=== PATIENT | male | born 1940 | race Hispanic/Latino ===

== ENCOUNTER 2017-08-13 07:59 | Day surgery (SDC) | payer MEDICARE, OTHER ==
[2017-08-01 11:52] VITALS: BMI 24.7
[2017-08-13] MEDS ORDERED: Propofol 10 mg/ml Inj (20 ML) ONE (08:44)
[2017-08-13] MEDS ORDERED: Sodium Chloride 0.9% 1,000 ML IV SCH (10:15)
[2017-08-13 10:28] VITALS: RESP 14; TEMP 98
[2017-08-13 10:54] VITALS: PULSE 56; O2SAT 99
[2017-08-13 11:25] VITALS: BP 145/74
== END 2017-08-13 11:48 | disposition home or self-care (01) ==
LOC: ENDO 07:59
PROVIDERS: ATTEND Internal Medicine Gastroenterology
DX: K22.70 Barrett's esophagus without dysplasia (principal); D50.9 Iron deficiency anemia, unspecified; K29.50 Unspecified chronic gastritis without bleeding; K44.9 Diaphragmatic hernia without obstruction or gangrene; I25.10 Atherosclerotic heart disease of native coronary artery without angina pectoris; R13.10 Dysphagia, unspecified
CPT/HCPCS: 43239; 88305; 88312; 88342; J2001; J2704; J7040 ×2